=== PATIENT | female | born 1970 | race African-American/Black ===

== ENCOUNTER 2017-02-09 12:38 | Emergency (ER) | payer SELFPAY ==
[2017-02-09 13:11] VITALS: BP 139/81; PULSE 79; TEMP 98.3; BMI 28.0
--- NOTE | 2017-02-09 14:20 | PDOC ---
History of Present Illness - General Chief Complaint: Ear Problem Stated Complaint: EAR PAIN Time Seen by Provider: 02/09/17 13:57 History Source: Patient Exam Limitations: No Limitations - History of Present Illness Initial Comments: 02/09/17 14:18 46 yr female with clogged ears for 3 days. no pain or fever no sore throat. 02/10/17 19:29 Past History - Past Medical History Allergies/Adverse Reactions: Allergies Allergy/AdvReac Type Severity Reaction Status Date / Time No Known Allergies Allergy Verified 02/09/17 13:07 Home Medications: Ambulatory Orders No Home Medications 0 dose .ROUTE UTDICT 10/18/13 Cardiac Disorders: Yes (PMV) - Immunization History Immunization Up to Date: Yes - Psycho/Social/Smoking Cessation Hx Anxiety: No Suicidal Ideation: No Smoking History: Current every day smoker Have you smoked in the past 12 months: Yes Number of Cigarettes Smoked Daily: 5 Information on smoking cessation initiated: No 'Breaking Loose' booklet given: 07/11/15 Hx Alcohol Use: No Drug/Substance Use Hx: No Substance Use Type: None Review of Systems - Review of Systems Able to Perform ROS?: Yes Is the patient limited Slovenian proficient: No Constitutional: No: Symptoms Reported HEENTM: Yes: Symptoms Reported *Physical Exam - Vital Signs Last Vital Signs Temp Pulse Resp BP Pulse Ox 98.3 F 79 19 139/81 98 02/09/17 13:07 02/09/17 13:07 02/09/17 13:07 02/09/17 13:07 02/09/17 13:07 - Physical Exam General Appearance: Yes: Nourished, Appropriately Dressed HEENT: positive: EOMI, SISI, Other (bilteral cerumen impaction ) Neck: positive: Supple Respiratory/Chest: positive: Lungs Clear, Normal Breath Sounds Cardiovascular: positive: Regular Rhythm, Regular Rate Musculoskeletal: positive: Normal Inspection Extremity: positive: Normal Capillary Refill, Normal Inspection, Normal Range of Motion Integumentary: positive: Normal Color, Dry, Warm Neurologic: positive: Fully Oriented, Alert, Normal Mood/Affect, Normal Response , Motor Strength 5/5 Medical Decision Making - Medical Decision Making 02/09/17 14:33 cc: bilateral cerumen impaction ears irrigated and flushed, copious amounts of wax returned will refer to ENT pt agrees with treatment plan 02/10/17 19:29 *DC/Admit/Observation/Transfer Diagnosis at time of Disposition: Impacted cerumen of both ears - Discharge Dispostion Disposition: HOME Condition at time of disposition: Good - Referrals Referrals: Alessandro Olivas MD [Staff Physician] - - Patient Instructions Additional Instructions: follow with the ENT for further care no Qtips inside the ear
== END 2017-02-09 14:38 | disposition home or self-care (01) ==
LOC: JERFT 12:38
PROC: 3E1B78Z Irrigation of Ear using Irrigating Substance, Via Natural or Artificial Opening (ICD-10-PCS; principal; 2017-02-09)
DX: H61.23 Impacted cerumen, bilateral (principal)
CPT/HCPCS: 99281-25

== ENCOUNTER → 2017-03-06 | Emergency (ER) | payer SELFPAY ==
[~2017-03-06] MED LIST: METOCLOPRAMIDE HCL INJECTION 10 MG/2 ML VIAL IVPB ONE; METOCLOPRAMIDE HCL INJECTION 10 MG/2 ML VIAL ONE; SODIUM CHLORIDE 0.9% 1000 ML INFUS.BAG IV ONE
[2017-03-06 08:58] VITALS: BP 141/89; PULSE 77; TEMP 97.8; BMI 24.2
--- NOTE | 2017-03-06 11:22 | PDOC ---
History of Present Illness - General History Source: Patient Exam Limitations: No Limitations - History of Present Illness Initial Comments: 03/06/17 11:55 The patient is a 46-year-old female, with a significant past medical history of mitral valve prolapse, who presents to the ED with lightheadedness, headache, nausea, vomiting, and diarrhea today. The patient was recently seen at [facility] and was given a 3-day course of antibiotics for uri symptoms. She does report vomiting x1 this morning and experiencing 2 episodes of loose watery stool. All emesis and stools are nonbloody. Pt states that she experiences migraines quite often, last migraine was three weeks ago. Pt presented earlier to the ED but stepped out to her car to sleep. She experienced a brief syncopal episode as she was walking back into the ED. She denies any chest pain, shortness of breath, palpitations, or head trauma. Pt states that she has not been able to tolerate any solids or liquids. She reports that she no longer menstruates. The patient denies any fever, chills, or abdominal pain. <Marsha Alberts - Last Filed: 03/06/17 11:55> <Leydi George - Last Filed: 03/06/17 13:58> - General Chief Complaint: Weakness Stated Complaint: LETHARGIC Time Seen by Provider: 03/06/17 09:54 Past History <Marsha Alberts - Last Filed: 03/06/17 11:55> - Past Medical History Cardiac Disorders: Yes (mvp) - Immunization History Immunization Up to Date: Yes - Psycho/Social/Smoking Cessation Hx Anxiety: No Suicidal Ideation: No Smoking History: Never smoked Have you smoked in the past 12 months: Yes Number of Cigarettes Smoked Daily: 5 Information on smoking cessation initiated: Yes 'Breaking Loose' booklet given: 03/06/17 Hx Alcohol Use: No Drug/Substance Use Hx: No Substance Use Type: None <Leydi George - Last Filed: 03/06/17 13:58> - Past Medical History Allergies/Adverse Reactions: Allergies Allergy/AdvReac Type Severity Reaction Status Date / Time No Known Allergies Allergy Verified 03/06/17 08:54 Home Medications: Ambulatory Orders No Home Medications 0 dose .ROUTE UTDICT 10/18/13 Review of Systems - Review of Systems Able to Perform ROS?: Yes Comments:: 03/06/17 11:58 GENERAL/CONSTITUTIONAL: No fever or chills. HEAD, EYES, EARS, NOSE AND THROAT: No change in vision. No ear pain or discharge. No sore throat. CARDIOVASCULAR: No chest pain or shortness of breath. RESPIRATORY: No cough, wheezing, or hemoptysis. GASTROINTESTINAL: No constipation. (+)nausea, vomiting, diarrhea GENITOURINARY: No dysuria, frequency, or change in urination. MUSCULOSKELETAL: No joint or muscle swelling or pain. No neck or back pain. SKIN: No rash NEUROLOGIC: No vertigo, or change in strength/sensation. (+)Lightheadedness, headache, syncope ENDOCRINE: No increased thirst. No abnormal weight change. HEMATOLOGIC/LYMPHATIC: No anemia, easy bleeding, or history of blood clots. ALLERGIC/IMMUNOLOGIC: No hives or skin allergy. <Marsha Alberts - Last Filed: 03/06/17 11:55> *Physical Exam - Vital Signs Last Vital Signs Temp Pulse Resp BP Pulse Ox 97.8 F 77 18 141/89 100 03/06/17 08:55 03/06/17 08:55 03/06/17 08:55 03/06/17 08:55 03/06/17 08:55 - Physical Exam Comments: 03/06/17 11:59 GENERAL: Awake, drowsy, but responsive, and answering all questions HEAD: No signs of trauma EYES: sclera anicteric, conjunctiva clear. (+)Pupils are 3 to 2 and reactive. ENT: Auricles normal inspection, hearing grossly normal, nares patent, oropharynx clear without exudates. (+)Dry mucosa. NECK: Normal ROM, supple, no lymphadenopathy, JVD, or masses LUNGS: Breath sounds equal, clear to auscultation bilaterally. No wheezes, and no crackles HEART: Regular rate and rhythm, normal S1 and S2, no murmurs, rubs or gallops ABDOMEN: Soft, nontender, normoactive bowel sounds. No guarding, no rebound. No masses EXTREMITIES: Normal range of motion, no edema. No clubbing or cyanosis. No cords, erythema, or tenderness. No cervical spine tenderness NEUROLOGICAL: Normal speech, normal gait SKIN: Warm, Dry, normal turgor, no rashes or lesions noted <Marsha Alberts - Last Filed: 03/06/17 11:55> - Vital Signs Last Vital Signs Temp Pulse Resp BP Pulse Ox 97.8 F 77 18 141/89 100 03/06/17 08:55 03/06/17 08:55 03/06/17 08:55 03/06/17 08:55 03/06/17 08:55 <Leydi George - Last Filed: 03/06/17 13:58> Heart Score/ECG Review #1 General ECG Interpretation: Sinus Rhythm, Normal Rate (68), Normal Intervals, No acute ischemic changes Compared to previous ECG there are: No significant change <Leydi George - Last Filed: 03/06/17 13:58> ED Treatment Course - LABORATORY CBC & Chemistry Diagram: 03/06/17 11:50 03/06/17 11:50 - Medications Given in the ED: ED Medications Discontinued Medications Generic Name Dose Route Start Last Admin Trade Name Tomás PRN Reason Stop Dose Admin Metoclopramide HCl 10 mg 03/06/17 11:24 03/06/17 11:54 Reglan Injection - IVPB 03/06/17 11:25 10 mg ONCE ONE Administration Sodium Chloride 1,000 ml 03/06/17 11:24 03/06/17 11:37 Normal Saline - IV 03/06/17 11:25 1,000 ml ONCE ONE Administration <Marsha Alberts - Last Filed: 03/06/17 11:55> - LABORATORY CBC & Chemistry Diagram: 03/06/17 11:50 03/06/17 11:50 <Leydi George - Last Filed: 03/06/17 13:58> Medical Decision Making - Medical Decision Making 03/06/17 11:18 46 yo F with no knonw pmhx here wtih recent cough uri symptoms, for which she was seen at [facility], given abx ( unsure of name x 3 days) here now with c/o headache, nausea, and diarreha. pt state has had small emesis, stool loose watery nonbloody. no abd pain. headache generalized, does have h/o similar migraines in the past. last 3 weeks ago. pt does no longer mentruate, not . no f/c no c/o body aches or pain. just feels weak and lightheaded. denies other medications other than abx. on exam awake, drowsy but responsive, answering all questions. pupils 3 to 2 mm reactive and equal, dry mucous membranes. lungs and cardiac exam normal. abd soft NT ND. ext WWP no edema. atraumatic. no cervical spinal tenderness. differential: medication side effect, sepsis, dehydration from gastoenteritis, electorltye abnormality, pna, uti, anemia, plan cbc lytes tox ekg iv hydration reglan and tyelnol, reassess. 03/06/17 13:56 pt states she is feeling better. pulled out IV left prior to receiving dc papers. labs unremarkable. urine mild dehydration. ct head normal and cxr normal. pt was much more alert prior to leaving. <Leydi George - Last Filed: 03/06/17 13:58> *DC/Admit/Observation/Transfer - Attestations Scribe Attestion: 03/06/17 12:05 Documentation prepared by Marsha Alberts, acting as medical numerical control operator for Leydi George MD. <Marsha Alberts - Last Filed: 03/06/17 11:55> - Discharge Dispostion Admit: No <Leydi George - Last Filed: 03/06/17 13:58> Diagnosis at time of Disposition: Dehydration, Enteritis - Patient Instructions Printed Discharge Instructions: Dehydration Additional Instructions: follow up with your primary doctor. you should discontinue antiobiotics as you do not need them, your cxr is negative. be sure drink plenty of fluids. return for any concerns or problems.
[2017-03-06 11:56] LABS: BASOPHIL 0.6 % (0-2.0); EOSINOPHIL 0.2 % (0-4.5); MCH 28.6 pg (25.7-33.7); MCHC 33.3 g/dl (32.0-36.0); MEAN PLT VOLUME 9.2 fl (7.5-11.1); NEUTROPHILS 41.4 % (42.8-82.8); PLATELET COUNT 158 K/MM3 (134-434); RDW 13.2 % (11.6-15.6); WHITE BLOOD COUNT 5.9 K/mm3 (4.0-10.0)
[2017-03-06 12:22] LABS: ALK PHOS 135 U/L (45-117); ANION GAP 11 (8-16); BILIRUBIN,TOTAL 0.9 mg/dL (0.2-1.0); CALCIUM 9.4 mg/dL (8.5-10.1); CO2 27 mmol/L (21-32); COCKROFT - GAULT 123.1565; CREATININE 0.6 mg/dL (0.55-1.02); GLUCOSE,RANDOM 96 mg/dL (74-106); SGOT/AST 27 U/L (15-37); SGPT/ALT 36 U/L (12-78); TOT PROT 7.9 g/dl (6.4-8.2)
[2017-03-06 12:23] LABS: URINE APPEARANCE CLEAR; URINE BILIRUBIN NEGATIVE (NEGATIVE); URINE BLOOD NEGATIVE (NEGATIVE); URINE COLOR DKYELLOW; URINE GLUCOSE (UA) NEGATIVE (NEGATIVE); URINE KETONE TRACE (NEGATIVE); URINE LEUK ESTERASE NEGATIVE (NEGATIVE); URINE NITRITE NEGATIVE (NEGATIVE); URINE UROBILINOGEN NEGATIVE E.U./dl (0.2-1.0)
[2017-03-06 12:37] LABS: URINE PROTEIN 1+ (NEGATIVE)
[2017-03-06 12:38] LABS: URINE BACTERIA RARE /hpf (NONE SEEN); URINE MUCUS MANY; URINE RBC <1 /hpf (0-3); URINE WBC 3 /hpf (3-5)
[2017-03-06 13:21] LABS: URINE MARIJUANA THC NEGATIVE ng/ml (CUTOFF=50)
--- NOTE | 2017-03-08 21:53 | EKG ---
Test Reason : Blood Pressure : / mmHG Vent. Rate : 068 BPM Atrial Rate : 068 BPM P-R Int : 156 ms QRS Dur : 086 ms QT Int : 418 ms P-R-T Axes : 080 047 052 degrees QTc Int : 444 ms NORMAL SINUS RHYTHM NORMAL ECG WHEN COMPARED WITH ECG OF 11-JUL-2015 09:07, P WAVE AXIS HAS CHANGED Confirmed by JOSE GOMEZ MD ([id number]) on 03/08/2017 9:52:25 PM Referred By: Confirmed By:JOSE GOMEZ MD
== END | disposition left against medical advice (07) ==
LOC: JER 08:44
PROC: 3E033GC Introduction of Other Therapeutic Substance into Peripheral Vein, Percutaneous Approach (ICD-10-PCS; principal; 2017-03-06)
DX: K52.9 Noninfective gastroenteritis and colitis, unspecified (principal); E86.0 Dehydration
CPT/HCPCS: 36415; 70450-TC; 71010-TC; 80053; 80307; 81003; 81015; 84703; 85025; 93005; 93010; 99284-25

== ENCOUNTER 2017-08-07 11:10 | Emergency (ER) | payer OTHER ==
[2017-08-07 11:17] VITALS: BP 126/74; PULSE 88; TEMP 98.4; BMI 27.4
--- NOTE | 2017-08-07 12:02 | PDOC ---
History of Present Illness - General Chief Complaint: Pain, Acute Stated Complaint: SWELLING IN HANDS Time Seen by Provider: 08/07/17 12:02 History Source: Patient Exam Limitations: No Limitations - History of Present Illness Initial Comments: 08/07/17 12:58 Chief complaint: Hand and wrist pain Patient is a 47-year-old female with no significant medical history who states that she noticed over the last several days she has bilateral hand and wrist pain. Patient otherwise feels well. 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 Patient saw her doctor on Thursday for same, had blood work, has not received results, he went to a entry level manufacturing engineer and had a normal echocardiogram because of a history of MVP. States the pain kept her up last night. She states that she took Excedrin pain reliever earlier without any relief. Denies any fever, chest pain, shortness of breath, any problems with her legs or feet. No neck pain or headache. No weakness. GENERAL/CONSTITUTIONAL: No fever, weakness. dizziness HEAD, EYES, EARS, NOSE AND THROAT: No change in vision. No ear pain or discharge. No sore throat. CARDIOVASCULAR: No chest pain RESPIRATORY: No shortness of breath or cough GASTROINTESTINAL: No pain, nausea, vomiting, diarrhea or constipation GENITOURINARY: No dysuria MUSCULOSKELETAL: No neck or back pain, + wrist and hand pain SKIN: No rash NEUROLOGIC: No headache, vertigo, loss of consciousness, or loss of sensation. GENERAL: The patient is awake, alert, and fully oriented, in no acute distress. HEAD: Normal with no signs of trauma. EYES: Pupils equal, round and reactive to light, sclera anicteric, conjunctiva clear. ENT: pharynx: no erythema, no exudate, uvula midline NECK: supple CHEST: clear, nontender, rr ABD: soft, nontender EXTREMITIES: Hands with painful open shank coverer, with minimal swelling to the mid 3 fingers on both hands, neurovascular intact. Normal range of motion, no edema. non specific findings for tinel and phalens nonspecific NEUROLOGICAL: Normal speech, normal gait. SKIN: Warm, Dry Past History - Past Medical History Allergies/Adverse Reactions: Allergies Allergy/AdvReac Type Severity Reaction Status Date / Time No Known Allergies Allergy Verified 08/07/17 11:17 Home Medications: Ambulatory Orders No Home Medications 0 dose .ROUTE UTDICT 10/18/13 Naproxen [Naprosyn -] 500 mg PO BID #28 tablet 08/07/17 Oxycodone HCl/Acetaminophen [Percocet 5-325 mg Tablet] 1 tab PO Q6H #12 tablet MDD 4 08/07/17 Cardiac Disorders: Yes (mvp) - Immunization History Immunization Up to Date: Yes - Suicide/Smoking/Psychosocial Hx Smoking History: Former smoker Have you smoked in the past 12 months: Yes Number of Cigarettes Smoked Daily: 6 If you are a former smoker, when did you quit?: 07/28 Information on smoking cessation initiated: No 'Breaking Loose' booklet given: 03/06/17 Hx Alcohol Use: No Drug/Substance Use Hx: No Substance Use Type: None *Physical Exam - Vital Signs Last Vital Signs Temp Pulse Resp BP Pulse Ox 98.4 F 88 18 126/74 100 08/07/17 11:13 08/07/17 11:13 08/07/17 11:13 08/07/17 11:13 08/07/17 11:13 Medical Decision Making - Medical Decision Making Patient with several days of wrist pain and hand pain with minimal swelling to the middle 3 fingers, no indication central neurological involvement, no indication for head CT. No neck pain. No swelling to the upper extremities that would necessitate ultrasounds. No leg swelling or symptoms to the lower extremities. Patient saw her doctor on Thursday, had lab work, will try to get results, will give Naprosyn, and reassess for any further evaluation that would have to be done today versus with her doctor Spoke to her doctor's office 2, for fax the results, did not receive, waited for about an hour. Patient has relief with Naprosyn. Long conversation discussing the difference in treatment and evaluation for carpal tunnel versus a systemic disorder, autoimmune which needs to be further evaluated by her doctor with certain special blood tests. And how this was not clear what was causing her symptoms as it was not totally characteristic for carpal tunnel. Patient will wear splints, and take pain medicines and follow-up with her doctor on Thursday. *DC/Admit/Observation/Transfer Diagnosis at time of Disposition: Bilateral hand pain - Discharge Dispostion Admit: No - Prescriptions Prescriptions: Naproxen [Naprosyn -] 500 mg PO BID #28 tablet Oxycodone HCl/Acetaminophen [Percocet 5-325 mg Tablet] 1 tab PO Q6H #12 tablet MDD 4 - Referrals Referrals: Deniz Beaulieu MD [Primary Care Provider] - - Patient Instructions Additional Instructions: Elevate, wear splint You can apply ice for 20 minutes every 2 hours for the next 2 days Naprosyn 500 mg every 12 hours for pain. If still in pain, you can take the Percocet one tablet every 6 hours but it's month sleeve meant for bedtime because it'll make you drowsy As discussed, it is not clear what is causing this problem, and is very important for you to follow-up with your primary care doctor on Thursday for further evaluation.
[2017-08-07] MEDS ORDERED: NAPROXEN 500 MG TABLET (FP) PO ONE (12:18)
[2017-08-07] MEDS ORDERED: NAPROXEN 500 MG TABLET (FP) ONE (12:20)
== END 2017-08-07 13:03 | disposition home or self-care (01) ==
LOC: JER 11:10 → JERFT 11:10
DX: M79.641 Pain in right hand (principal); R60.0 Localized edema
CPT/HCPCS: 99281-25

== ENCOUNTER 2018-07-21 09:07 | Emergency (ER) | payer OTHER ==
[2018-07-21 09:24] VITALS: BP 165/85; PULSE 79; TEMP 98.7; BMI 28.0
--- NOTE | 2018-07-21 10:45 | PDOC ---
History of Present Illness - General Chief Complaint: Cold Symptoms Stated Complaint: COLD SYMPTOMS Time Seen by Provider: 07/21/18 10:32 History Source: Patient Exam Limitations: No Limitations - History of Present Illness Initial Comments: 07/21/18 10:38 48 yr female with c/o sinus congestion, sneezing, headache for 3 days no fever no sore throat no abd pain. pt also left her eyeglasses at work has a headache from not using them. Past History - Past Medical History Allergies/Adverse Reactions: Allergies Allergy/AdvReac Type Severity Reaction Status Date / Time No Known Allergies Allergy Verified 07/21/18 09:24 Home Medications: Ambulatory Orders Fluticasone Prop 0.05% Nasal [Flonase -] 1 - 2 spray NS BID #1 spray.pump Loratadine [Allergy Relief] 10 mg PO DAILY #14 tablet 07/21/18 Cardiac Disorders: Yes (mvp) COPD: No - Immunization History Immunization Up to Date: Yes - Suicide/Smoking/Psychosocial Hx Smoking History: Never smoked Have you smoked in the past 12 months: No Number of Cigarettes Smoked Daily: 6 If you are a former smoker, when did you quit?: 07/28 Information on smoking cessation initiated: No 'Breaking Loose' booklet given: 11/24/17 Hx Alcohol Use: No Drug/Substance Use Hx: No Substance Use Type: None Respiratory Specific PMHX - Complaint Specific PMHX Angina: No Bronchitis: No Pneumonia: No Pulmonary Embolus: No TB (Tuberculosis): No Review of Systems - Review of Systems Able to Perform ROS?: Yes Is the patient limited Sinhala proficient: No Constitutional: No: Symptoms Reported HEENTM: Yes: Symptoms Reported Respiratory: Yes: Symptoms reported Cardiac (ROS): No: Symptoms Reported ABD/GI: No: Symptoms Reported *Physical Exam - Vital Signs Last Vital Signs Temp Pulse Resp BP Pulse Ox 98.7 F 79 16 165/85 98 07/21/18 09:20 07/21/18 09:20 07/21/18 09:20 07/21/18 09:20 07/21/18 09:20 - Physical Exam General Appearance: Yes: Nourished, Appropriately Dressed HEENT: positive: EOMI, SISI, TMs Normal, Pharynx Normal, Nasal Congestion, Rhinorrhea. negative: Sinus Tenderness Neck: positive: Supple. negative: Lymphadenopathy (R), Lymphadenopathy (L) Respiratory/Chest: positive: Lungs Clear, Normal Breath Sounds Cardiovascular: positive: Regular Rhythm, Regular Rate Gastrointestinal/Abdominal: positive: Normal Bowel Sounds, Soft Musculoskeletal: positive: Normal Inspection Extremity: positive: Normal Capillary Refill, Normal Inspection Integumentary: positive: Normal Color, Dry, Warm Neurologic: positive: Fully Oriented, Alert, Normal Mood/Affect, Normal Response , Motor Strength 5/5 Medical Decision Making - Medical Decision Making 07/21/18 10:40 cc: cold symptoms no fever asking for work note non toxic will treat for sinus/allergy symptoms *DC/Admit/Observation/Transfer Diagnosis at time of Disposition: Nasal sinus congestion, Sneezing - Discharge Dispostion Disposition: HOME Condition at time of disposition: Good - Prescriptions Prescriptions: Fluticasone Prop 0.05% Nasal [Flonase -] 1 - 2 spray NS BID #1 spray.pump Loratadine [Allergy Relief] 10 mg PO DAILY #14 tablet - Referrals - Patient Instructions Printed Discharge Instructions: DI for Common Cold Additional Instructions: use the nasal spray as directed daily at the same time take the loratidine daily for sneezing, itching wash hands good increase vitamin C intake follow with your doctor if not feeling better - Post Discharge Activity Forms/Work/School Notes: Back to Work
== END 2018-07-21 10:48 | disposition home or self-care (01) ==
LOC: JERFT 09:07
DX: R09.81 Nasal congestion (principal); R06.7 Sneezing; F17.210 Nicotine dependence, cigarettes, uncomplicated; I34.1 Nonrheumatic mitral (valve) prolapse
CPT/HCPCS: 99281-25

== ENCOUNTER 2018-09-14 10:01 | Emergency (ER) | payer OTHER ==
[2018-09-14 10:14] VITALS: BP 136/73; PULSE 77; TEMP 98.5; BMI 27.4
--- NOTE | 2018-09-14 10:17 | PDOC ---
History of Present Illness <Jerry Chen - Last Filed: 09/14/18 11:15> - History of Present Illness Initial Comments: 48 year-old female, with a significant past medical history of mitral valve prolapse, who presents to the ED with chest pain, cough, and productive sputum since 330 am. She states the chest pain has resolved but she was concerned because of her cough. She says the phlegm appeared white in nature but had no blood in it. She denies recent fevers, chills, or infections. She states she quit smoking 2 weeks ago but has a 35 pack year history. <Jovon Stewart - Last Filed: 09/14/18 11:34> - General Chief Complaint: Palpitations Stated Complaint: PALPITATIONS Time Seen by Provider: 09/14/18 10:13 Past History <Jerry Chen - Last Filed: 09/14/18 11:15> - Past Medical History Cardiac Disorders: Yes (mvp) COPD: No - Immunization History Immunization Up to Date: Yes - Suicide/Smoking/Psychosocial Hx Smoking History: Former smoker Have you smoked in the past 12 months: No Number of Cigarettes Smoked Daily: 6 If you are a former smoker, when did you quit?: 2 weeks ago Information on smoking cessation initiated: No 'Breaking Loose' booklet given: 11/24/17 Hx Alcohol Use: No Drug/Substance Use Hx: No Substance Use Type: None <Jovon Stewart - Last Filed: 09/14/18 11:34> - Past Medical History Allergies/Adverse Reactions: Allergies Allergy/AdvReac Type Severity Reaction Status Date / Time No Known Allergies Allergy Verified 09/14/18 10:09 Home Medications: Ambulatory Orders Fluticasone Prop 0.05% Nasal [Flonase -] 1 - 2 spray NS BID #1 spray.pump Loratadine [Allergy Relief] 10 mg PO DAILY #14 tablet 07/21/18 Review of Systems - Review of Systems Comments:: CONSTITUTIONAL: Absent: fever, no chills, no fatigue EYES: Absent: visual changes ENT: Absent: ear pain, no sore throat CARDIOVASCULAR: Absent: chest pain, no palpitations RESPIRATORY: Absent: cough, no SOB GI: Absent: abdominal pain, no nausea, no vomiting, no constipation, no diarrhea GENITOURINARY: Absent: dysuria, no frequency, no hematuria MUSKULOSKELETAL: Absent: back pain, no arthralgia, no myalgia SKIN: Absent: rash NEURO: Absent: headache <Devon Stewartian - Last Filed: 09/14/18 11:34> *Physical Exam - Vital Signs Last Vital Signs Temp Pulse Resp BP Pulse Ox 98.5 F 77 18 136/73 97 09/14/18 10:09 09/14/18 10:09 09/14/18 10:09 09/14/18 10:09 09/14/18 10:09 <Jerry Chen - Last Filed: 09/14/18 11:15> - Vital Signs Last Vital Signs Temp Pulse Resp BP Pulse Ox 98.5 F 77 18 136/73 97 09/14/18 10:09 09/14/18 10:09 09/14/18 10:09 09/14/18 10:09 09/14/18 10:09 - Physical Exam Comments: GENERAL: Well-appearing, well-nourished. No apparent distress. HEENT: Normocephalic, atraumatic. PERRL, EOM intact. CARDIOVASCULAR: Normal S1, S2. Regular rate and rhythm. PULMONARY: Clear to auscultation bilaterally. ABDOMEN: Soft, non-distended, non-tender. EXTREMITIES: Normal ROM in all four extremities. No gross deformities. SKIN: Warm, dry. No rash NEUROLOGICAL: No focal neurological deficits. <Devon Stewartian - Last Filed: 09/14/18 11:34> Moderate Sedation - Procedure Monitoring Vital Signs: Procedure Monitoring Vital Signs Temperature 98.5 F 09/14/18 10:09 Pulse Rate 77 09/14/18 10:09 Respiratory Rate 18 09/14/18 10:09 Blood Pressure 136/73 09/14/18 10:09 O2 Sat by Pulse Oximetry (%) 97 09/14/18 10:09 <Jerry Chen - Last Filed: 09/14/18 11:15> - Procedure Monitoring Vital Signs: Procedure Monitoring Vital Signs Temperature 98.5 F 09/14/18 10:09 Pulse Rate 77 09/14/18 10:09 Respiratory Rate 18 09/14/18 10:09 Blood Pressure 136/73 09/14/18 10:09 O2 Sat by Pulse Oximetry (%) 97 09/14/18 10:09 <Jovon Stewart - Last Filed: 09/14/18 11:34> Medical Decision Making - Medical Decision Making 09/14/18 11:15 pt evaluated by resident but left before workup and before I could evaluate her. History of MCP and awoke with cough, denied palpitations or chest pain, and presented for evaluation. clarified she had not been seen by her PCP for this complaint, though seen in the past for bronchitis. VSS here, workup ordered for labs including trop/cxr but patient ELOPED. EKG sinus with APC, normal QRS and QTC, no ischemia. <Jerry Chen - Last Filed: 09/14/18 11:15> - Medical Decision Making 48 year-old female, with a significant past medical history of mitral valve prolapse, who presents to the ED with chest pain, cough, and productive sputum since 330 am. DD includes but not limited to: ACS, uri, pna, valvular disease, other infection. Plan: cbc, cmp, ekg, trop, cxr, re-assess. Patient eloped before medical workup could be completed. <Jovon Stewart - Last Filed: 09/14/18 11:34> *DC/Admit/Observation/Transfer <Jerry Chen - Last Filed: 09/14/18 11:15> - Discharge Dispostion Decision to Admit order: No <Jovon Stewart - Last Filed: 09/14/18 11:34> Diagnosis at time of Disposition: Cough - Discharge Dispostion Disposition: ELOPED Condition at time of disposition: Stable - Referrals Referrals: Alex Maynard [Primary Care Provider] -
--- NOTE | 2018-09-15 13:04 | EKG ---
Test Reason : Blood Pressure : / mmHG Vent. Rate : 072 BPM Atrial Rate : 072 BPM P-R Int : 000 ms QRS Dur : 088 ms QT Int : 398 ms P-R-T Axes : 000 033 036 degrees QTc Int : 435 ms SINUS RHYTHM WITH PREMATURE ATRIAL COMPLEXES OTHERWISE NORMAL ECG WHEN COMPARED WITH ECG OF 24-NOV-2017 12:11, NO SIGNIFICANT CHANGE WAS FOUND Confirmed by RAHEL GHOSH MD ([id number]) on 09/15/2018 1:04:05 PM Referred By: Confirmed By:RAHEL GHOSH MD
== END 2018-09-14 10:30 | disposition left against medical advice (07) ==
LOC: JER 10:01
DX: R05 Cough (principal)
CPT/HCPCS: 93005; 93010; 99281-25

== ENCOUNTER 2018-09-19 11:41 | Emergency (ER) | payer OTHER ==
[2018-09-19 11:56] VITALS: TEMP 98.3; BMI 26.9
--- NOTE | 2018-09-19 12:31 | PDOC ---
History of Present Illness - History of Present Illness Initial Comments: 09/19/18 12:30 Patient is a 48 year old female with past medical history of mitral valve prolapse, presented with elevated blood pressure of 180/90 this morning. Patient was recently seen at her crocodile farmer's (Dr. Rice) office 2 days ago where a complete work-up of the heart including echocardiogram was done. Patient was instructed to take measurements of her blood pressure over the weekend and to come back for follow-up. No BP medications given at that time. Patient denies headache, dizziness, acute change in vision, chest pain, SOB, palpitations, abdominal pain, diarrhea, constipation and urinary symptoms. <Debra Mann - Last Filed: 09/22/18 10:44> <Marlo Feng - Last Filed: 09/25/18 08:19> - General Chief Complaint: Blood Pressure Problem Stated Complaint: HTN Time Seen by Provider: 09/19/18 12:08 Past History - Past Medical History Cardiac Disorders: Yes (mvp) COPD: No - Immunization History Immunization Up to Date: Yes - Suicide/Smoking/Psychosocial Hx Smoking History: Never smoked Have you smoked in the past 12 months: No Number of Cigarettes Smoked Daily: 6 If you are a former smoker, when did you quit?: 2 weeks ago Information on smoking cessation initiated: No 'Breaking Loose' booklet given: 11/24/17 Hx Alcohol Use: No Drug/Substance Use Hx: No Substance Use Type: None <Debra Mann - Last Filed: 09/22/18 10:44> <Marlo Feng - Last Filed: 09/25/18 08:19> - Past Medical History Allergies/Adverse Reactions: Allergies Allergy/AdvReac Type Severity Reaction Status Date / Time No Known Allergies Allergy Verified 09/19/18 11:55 Home Medications: Ambulatory Orders Azithromycin [Zithromax 250mg Tablets -] 250 mg PO ASDIR 09/19/18 Methylprednisolone [Medrol -] 4 mg PO ASDIR 09/19/18 Review of Systems - Review of Systems Comments:: 09/25/18 08:18 Constitutional - no reported Fever, Chills, HEENT: no reported vision changes, sore throat Respiratory: no reported cough, sob, hemoptysis Cardiac: no reported chest pain, palpitations, light headedness, leg swelling Abd/GI: no reported abd pain, nausea, vomiting, blood per rectum, melena, diarrhea : no reported dysuria, frequency, discharge Musculskelatal - no reported back pain, joint swelling skin - no reported bruising, erythema, rash neurological: no reported headache, numbness, focal weakness, tingling, ataxia, hematologic: no reported easy bruising, easy bleeding <Marlo Feng - Last Filed: 09/25/18 08:19> *Physical Exam - Vital Signs Last Vital Signs Temp Pulse Resp BP Pulse Ox 98.3 F 89 16 162/92 99 09/19/18 11:53 09/19/18 11:53 09/19/18 11:53 09/19/18 11:53 09/19/18 11:55 - Physical Exam Comments: 09/19/18 12:53 General: awake, alert, oriented, not in acute distress Head:no signs of head trauma HEENT:PERRLA, EOMI, sclerae anicteric, no nasal discharge, non-erythematous oropharynx, moist mucous membranes Neck:soft, supple, trachea midline, without thyromegaly Lungs:clear to auscultation bilaterally Heart:regular rate and rhythm, normal S1/S2, no m,r,g Abdomen:soft, nontender, nondistended, NABS, no CVA tenderness Ext:+2 pulses, no peripheral edema, cyanosis or clubbing Neuro: AAOx3, CN II-XII intact, motor strength intact, sensation intact, normal gait, normal speech <Debra Mann - Last Filed: 09/22/18 10:44> - Vital Signs Last Vital Signs Temp Pulse Resp BP Pulse Ox 98.3 F 88 16 169/82 99 09/19/18 11:53 09/19/18 13:36 09/19/18 11:53 09/19/18 13:36 09/19/18 11:55 <Marlo Feng - Last Filed: 09/25/18 08:19> Moderate Sedation - Procedure Monitoring Vital Signs: Procedure Monitoring Vital Signs Temperature 98.3 F 09/19/18 11:53 Pulse Rate 89 09/19/18 11:53 Respiratory Rate 16 09/19/18 11:53 Blood Pressure 162/92 09/19/18 11:53 O2 Sat by Pulse Oximetry (%) 99 09/19/18 11:55 <Debra Mann - Last Filed: 09/22/18 10:44> - Procedure Monitoring Vital Signs: Procedure Monitoring Vital Signs Temperature 98.3 F 09/19/18 11:53 Pulse Rate 88 09/19/18 13:36 Respiratory Rate 16 09/19/18 11:53 Blood Pressure 169/82 09/19/18 13:36 O2 Sat by Pulse Oximetry (%) 99 09/19/18 11:55 <Marlo Feng - Last Filed: 09/25/18 08:19> Medical Decision Making - Medical Decision Making 09/19/18 12:55 Patient is a 48 year old female with past medical history of mitral valve prolapse, presented with elevated blood pressure of 180/90 this morning. DDx include but not limited to Hypertension, ACS, Anxiety EKG 09/19/18 13:01 EKG - NSR, no ST-T wave changes Will not any medications. Patient is asymptomatic. Will defer further work-up at this time. Patient instructed to continue taking blood pressure measurements and to bring it on follow-up with crocodile farmer on Thursday. Dispo. 09/19/18 13:21 Repeat VS: BP 168/92 SC 61 RR 16 O2 sat 98% <Debra Mann - Last Filed: 09/22/18 10:44> *DC/Admit/Observation/Transfer - Discharge Dispostion Decision to Admit order: No <Debra Mann - Last Filed: 09/22/18 10:44> <Marlo Feng - Last Filed: 09/25/18 08:19> Diagnosis at time of Disposition: Hypertension Qualifiers: Hypertension type: unspecified Qualified Code(s): I10 - Essential (primary) hypertension - Discharge Dispostion Disposition: HOME Condition at time of disposition: Stable - Referrals Referrals: Deniz Beaulieu MD [Primary Care Provider] - - Patient Instructions Printed Discharge Instructions: DI for High Blood Pressure, How to Monitor Your Blood Pressure at Home Additional Instructions: You were seen because you had high blood pressure. Electrocardiogram was done which was negative of any emergent concerns. Take your blood pressure measurements everyday at the same time and bring this with you when you follow-up with your crocodile farmer. Please follow-up with your crocodile farmer (Dr. Rice) on Thursday as scheduled. Follow-up with your primary care doctor within 2 days. Call 911 or go to the ED if with any worsening chest pain, shortness of breath, headache, dizziness, changes in vision, fever, chills or any new concerns noted. - Post Discharge Activity
--- NOTE | 2018-09-19 12:36 | PDOC ---
Attending Attestation - HPI HPI: 09/19/18 12:38 The patient is a 48 year old female, with a significant past medical history of mitral valve prolapse, who presents to the emergency department with elevated BP (180/90) at the pharmacy today. She reportedly had a BP in her doctors office (160/90) last week and was advised to monitor her BP over the weekend. She states she walked into [facility] pharmacy and immediately sat down and took her BP. She denies any other complaints. Secondarily, she is currently taking prednisone for bronchitis. The patient denies chest pain, shortness of breath, headache and dizziness. The patient denies fever, chills, nausea, vomit, diarrhea and constipation. The patient denies dysuria, frequency, urgency and hematuria. Allergies: NKDA PCP - Dr. Deniz Beaulieu Cards: Dr. Rice - Medical Decision Making 09/19/18 12:38 Documentation prepared by Kavita Dickinson, acting as medical office asst for Marlo Feng MD <Kavita Dickinson - Last Filed: 09/19/18 13:06> - Resident Resident Name: Debra Mann - ED Attending Attestation I have performed the following: I have examined & evaluated the patient, The case was reviewed & discussed with the resident, I agree w/resident's findings & plan, Exceptions are as noted - Physicial Exam PE: 09/19/18 12:44 GENERAL: The patient is awake, alert, and fully oriented, Nontoxic - in no acute distress. HEAD: Normocephalic, atraumatic. EYES: extraocular movements intact, sclera anicteric, conjunctiva clear. ENT: Normal voice, Moist mucous membranes. NECK: Normal range of motion, supple LUNGS: Breath sounds equal, clear to auscultation bilaterally. No wheezes, no rhonchi, no rales. HEART: Regular rate and rhythm, normal S1 and S2 without murmur, rub or gallop. ABDOMEN: Soft, nontender No guarding, no rebound. . No CVA tenderness EXTREMITIES: Normal range of motion, no edema. NEUROLOGICAL: No facial assymetry, Normal speech, PSYCH: Normal mood, normal affect. SKIN: Warm, Dry, normal turgor, - Medical Decision Making 09/19/18 12:35 48y F hx of mitral valve prolapse, presents with concern for elevated bp had followed up with cardiolgist and was told to monitor her bp, pending follow up visit on thursday has not started eds yet bp was 180/90 otherwise asymptomatic bp here is slightly eelvated. bp from 5 days ago was normal will defer starting antihypertensives as pt has a fu appt with cardiology will dfer workup as pt is otherwise asypmtomatic Return precautions were discussed I discussed the physical exam findings, ancillary test results and final diagnoses with the patient. I answered all of the patient's questions. The patient was satisfied with the care received and felt comfortable with the discharge plan and treatment plan. The patient will call their primary care physician within 24 hours to arrange follow-up and will return to the Emergency Department with any new, persistent or worsening symptoms. 09/25/18 08:02 A portion of this note was documented by scribe services under my direction. I have reviewed the details of the note, within reason, and agree with the documentation with the following case summary and management plan written by me <Marlo Feng - Last Filed: 09/25/18 08:02> Heart Score/ECG Review - ECG Impressions Comment:: 09/19/18 12:43 Twelve-lead EKG was performed and reviewed by me. There is normal sinus rhythm with a rate of [address] changes suggestive of acute ischemia <Marlo Feng - Last Filed: 09/25/18 08:02>
[2018-09-19 13:37] VITALS: BP 169/82; PULSE 88
--- NOTE | 2018-09-19 17:15 | EKG ---
Test Reason : Blood Pressure : / mmHG Vent. Rate : 069 BPM Atrial Rate : 052 BPM P-R Int : 000 ms QRS Dur : 088 ms QT Int : 406 ms P-R-T Axes : 000 030 022 degrees QTc Int : 435 ms UNDETERMINED RHYTHM VOLTAGE CRITERIA FOR LEFT VENTRICULAR HYPERTROPHY ABNORMAL ECG WHEN COMPARED WITH ECG OF 14-SEP-2018 10:10, CURRENT UNDETERMINED RHYTHM PRECLUDES RHYTHM COMPARISON, NEEDS REVIEW Confirmed by RAHEL GHOSH MD ([id number]) on 09/19/2018 5:15:06 PM Referred By: Confirmed By:RAHEL GHOSH MD
== END 2018-09-19 13:33 | disposition home or self-care (01) ==
LOC: JER 11:41
DX: I10 Essential (primary) hypertension (principal); I34.1 Nonrheumatic mitral (valve) prolapse; Z87.891 Personal history of nicotine dependence
CPT/HCPCS: 93005; 93010; 99283-25

== ENCOUNTER 2024-11-29 11:59 | Emergency (ER) | payer SELFPAY ==
[2024-11-29] MEDS ORDERED: KETOROLAC TROMETHAMINE 30 MG/1 ML VIAL ONE (12:50)
[2024-11-29] MEDS ORDERED: LIDOCAINE 4% PATCH TP ONE (12:50)
[2024-11-29] MEDS ORDERED: ACETAMINOPHEN 500 MG TABLET (FP) ONE (12:50)
[2024-11-29] MEDS: KETOROLAC TROMETHAMINE 30 MG/1 ML VIAL IM ONE (12:57)
[2024-11-29] MEDS: LIDOCAINE 4% PATCH TP ONE (12:57)
[2024-11-29] MEDS: ACETAMINOPHEN 500 MG TABLET (FP) PO ONE (12:57)
[2024-11-29 13:16] VITALS: BP 138/85; PULSE 102; RESP 18; TEMP 98.4; BMI 27.7
== END 2024-11-29 13:27 | disposition home or self-care (01) ==
LOC: JERFT 11:59
PROC: 3E0233Z Introduction of Anti-inflammatory into Muscle, Percutaneous Approach (ICD-10-PCS; principal; 2024-11-29)
DX: M54.42 Lumbago with sciatica, left side (principal)
CPT/HCPCS: 99284-25